=== PATIENT | female | born 1975 | race Caucasian/White ===

== ENCOUNTER 2020-12-25 11:16 | Emergency (ER) | payer BC, OTHER ==
[2013-10-12 11:57] VITALS: BP 114/58
[~2020-12-25] VITALS: Ht 162.6 cm; Wt 85.3 kg
[~2020-12-25 11:16] MED LIST: ATENOLOL100 MG PO; ATENOLOL50 MG PO; MOTRIN800 MG PO; NORCO 5-325 TA1 EACH PO; SURFAK240 MG PO; ULTRAM50 MG PO
[2020-12-25] MEDS ORDERED: SODIUM CHLORIDE 0.9% 1000ML 1,000 ML IV SCH (13:15)
[2020-12-25] MEDS ORDERED: KETOROLAC TROMETHAMINE 30 MG/ML VIAL IV STA (13:18)
[2020-12-25] MEDS ORDERED: SODIUM CHLORIDE 0.9% 1000ML 1,000 ML ONE (13:50)
[2020-12-25] MEDS ORDERED: KETOROLAC TROMETHAMINE 30 MG/ML VIAL ONE (13:50)
[2020-12-25 15:45] LABS: BASOPHILS % 0.4 % (0.0-1.0); EOSINOPHILS # (AUTO) 0.1 (0.0-0.4); EOSINOPHILS % 1.6 % (0.0-6.0); HEMATOCRIT 40.7 % (34.2-44.1); HEMOGLOBIN 12.4 g/dL (12.0-16.0); LYMPHOCYTES # (AUTO) 2.1 (1.0-3.2); LYMPHOCYTES % 30.4 % (18.0-39.1); MEAN CORPUSCULAR HEMOGLOBIN 27.7 pg (28-32); MEAN CORPUSCULAR HGB CONC 30.5 g/dL (31-35); MEAN CORPUSCULAR VOLUME 91.1 fL (81-99); MONOCYTES # (AUTO) 0.4 (0.2-0.8); MONOCYTES % 5.3 % (4.4-11.3); NEUTROPHILS # (AUTO) 4.3 (2.1-6.9); NEUTROPHILS % 62.2 % (38.7-80.0); PLATELET COUNT 316 x10e3/uL (140-360); RED BLOOD COUNT 4.47 x10e6/uL (3.6-5.1); RED CELL DISTRIBUTION WIDTH 13.1 % (11.7-14.4)
[2020-12-25] MEDS ORDERED: FIORICET 50-301 EACH PO (16:19)
== END 2020-12-25 16:05 | disposition home or self-care (01) ==
LOC: FSED 11:55
DX: R50.9 Fever, unspecified (principal); R06.02 Shortness of breath; M79.10 Myalgia, unspecified site; T50.Z95A Adverse effect of other vaccines and biological substances, initial encounter; R05 Cough; I10 Essential (primary) hypertension; R94.31 Abnormal electrocardiogram [ECG] [EKG]
CPT/HCPCS: 36415; 71046; 80053; 81003; 82553; 84484; 85025; 99283; J1885; J7030; 93005